=== PATIENT | male | born 1955 | race Caucasian/White ===

== ENCOUNTER 2022-11-11 08:37 | Outpatient (CLI) | payer MEDICARE, SELFPAY ==
[2022-11-11 09:20] VITALS: BP 134/66; PULSE 65; RESP 18; TEMP 36.8; O2SAT 98
[2022-11-11 09:50] VITALS: BP 122/67; PULSE 59; RESP 18
== END 2022-11-11 09:50 | disposition home or self-care (01) ==
LOC: INF 08:38
PROVIDERS: PCP Family Medicine; Visit Provider Internal Medicine Medical Oncology
DX: D50.9 Iron deficiency anemia, unspecified (principal)
CPT/HCPCS: 96374; Q0138

== ENCOUNTER 2022-11-15 08:16 | Outpatient (CLI) | payer MEDICARE, SELFPAY ==
[2022-11-15 08:35] VITALS: BP 131/74; PULSE 76; RESP 18; O2SAT 97
[2022-11-15 08:50] VITALS: BP 135/75; PULSE 71; RESP 18; O2SAT 99
== END 2022-11-15 09:00 | disposition home or self-care (01) ==
LOC: LAB 08:17 → INF 08:28
PROVIDERS: PCP Family Medicine; Visit Provider Internal Medicine Medical Oncology
DX: D50.9 Iron deficiency anemia, unspecified (principal)
CPT/HCPCS: 96374; Q0138

== ENCOUNTER 2025-01-29 13:43 | Outpatient (CLI) | payer MEDICARE, SELFPAY ==
[2025-01-29 13:57] LABS: Hematocrit 38.3 % (42.0-52.0); Hemoglobin 11.9 g/dL (14.1-18.0); Immature Granulocytes % 0.3 %; Mean Corpuscular HGB Conc 31.1 g/dL (31.8-35.4); Mean Corpuscular Hemoglobin 25.8 pg (27.0-31.2); Mean Corpuscular Volume 83.1 fl (80-94); Nucleated Red Blood Cells % 0 %; Platelet Count 362 K/mm3 (142-424); Red Blood Count 4.61 M/mm3 (4.60-6.20); Red Cell Distribution Width-SD 51.6 fL; White Blood Count 6.3 K/mm3 (4.8-10.8)
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
--- OUTSIDE RECORDS SUMMARY | 2025-01-29 14:28 | XMS_ITS | Data Portability ---
Author Organization [facility] Address [address] [place] [address] Assessment Encounter Date Assessment Date Assessment LastModified by Organization Details LastModified Time 07/31/2023 07/31/2023 Medicare Preventive Services Check List reviewed and printed for patient. [email or web address] Not available 07/31/2023 10:40:00 11/07/2024 11/07/2024 Masury: Patient's case and presentation discussed; agree with plan and treatment recommendations as outlined below. Patient seen and evaluated with resident. [email or web address] Not available 11/07/2024 11:59:01 Plan of Treatment Reminders Order Date Submit Date Provider Last Modified By Organization Details Last Modified Time Details Appointments None recorded. Lab CBC w/ auto diff 2024 025 OJ [facility], [address], [address], [place], [address], 14:11:11 ferritin, serum or plasma 2024 025 OJ [facility], [address], [place] [address], [place], [address], 5 14:11:14 folate, serum 2024 025 OJ [facility], [address], [address], [place], [address], 5 14:11:12 TIBC (total iron-zenobia ng capacity), serum 2024 025 OJ [facility], [address], [address], [place], [address], 5 14:11:12 vitamin B12, serum 2024 025 OJ Gaona, [address], [address], [place], [address], 5 14:11:13 retic count, blood 2024 025 OJ Gaona, [address], [place] [address], [place], [address], 5 14:11:14 methylmalo vance, QN, serum or plasma 2024 025 OJ Gaona, [address], [place] [address], [place], [address], 5 14:11:13 iron + total iron-zenobia ng capacity (TIBC), serum 2023 024 OJ Gaona, [address], [place] [address], [place], [address], 4 08:26:03 ferritin, serum or plasma 2023 024 OJ Gaona, [address], [address], [place], [address], 4 08:26:06 CBC w/ auto diff 2023 024 OJ Gaona, [address], [address], [place], [address], 4 08:26:01 lipid panel, serum 2023 024 OJ Gaona, [address], [address], [place], [address], 4 08:26:02 TSH, ultra-sens itive, serum 2023 024 OJ Gaona, [address], [place] [address], [place], [address], 4 08:26:04 magnesium, serum or plasma 2023 024 OJ Dempseytruong, [address], [place] [address], [place], [address], 4 08:26:05 C reactive protein, QN, serum or plasma 2023 024 OJ Dempseytruong, [address], [place] [address], [place], [address], 4 08:26:07 PSA, total, serum or plasma 2023 024 OJ Jimenez, [address], [place] [address], [place], [address], 4 08:26:04 HbA1c (hemoglobi n A1c), blood 2023 024 OJ Dempseytruong, [address], [address], [place], [address], 4 08:28:21 magnesium, serum or plasma 2023 024 OJ Dempseytruong, [address], [address], [place], [address], 4 08:28:21 CMP, serum or plasma 2023 024 OJ Dempseytruong, [address], [address], [place], [address], 4 08:28:18 iron + total iron-zenobia ng capacity (TIBC), serum 2023 024 OJ Dempseytruong, [address], [place] [address], [place], [address], 4 08:28:19 CBC w/ auto diff 2023 024 OJ Jimenez, [address], [address], [place], [address], 4 08:28:17 ferritin, serum or plasma 2023 024 OJ Lablylarp, [address], [place] [address], [place], [address], 4 08:28:23 vitamin B12 + folate, serum or blood 2023 024 OJ [facility], [address], [place] [address], [place], [address], 4 08:28:20 haptoglobi n, serum 2023 024 OJ [facility], [address], [address], [place], [address], 4 08:28:22 Referral gastroente rologist referral 2024 025 BONNIE Centeno MD, [address] [place] [address] , [address], [place], [address], 5 13:59:[address] referral 2024 025 BONNIE Rincon MD, [address], [place], [address], 5 14:20:40 otolaryngo logist referral 2022 023 [email or web address] [facility], [address] [place] [address] [address], [place], [address], 3 09:37:10 Procedures None recorded. Surgeries None recorded. Imaging electromyo gram + nerve conduction study 2023 024 OJ Espinoza PT, [address] , [address], [place], [address], 4 19:23:20 Medication Orders valacyclov ir 1 gram tablet 2023 024 nguttman [facility], [address] [place], [address], 11:43:21 prednisone 20 mg tablet 2023 024 nguttman [facility], [address] [place], [address], 11:43:17 meclizine 12.5 mg tablet 2022 023 [email or web address] [facility], [address] [place], [address], 11:38:50 Patient TargetsNo targets recorded. Patient Instructions Encounter Date Encounter Id Patient Instructions Last Modified By Organization Details Last Modified Time 11/18/2022 [id number] Start Meclizine as directed. Follow up with ENT. If symptoms persist or worsen call pp or seek medical attention. [email or web address] Not available 11/18/2022 13:36:27 07/31/2023 [id number] advance directiv es: care instructions [email or web address] Not available 07/31/2023 11:17:40 learning about depression [email or web address] Not available 07/31/2023 11:17:40 preventing falls : care instructions [email or web address] Not available 07/31/2023 11:17:41 medicare prevent kerry services guide nguttman Not available 07/31/2023 11:17:40 learning about healthy weight [email or web address] Not available 07/31/2023 11:17:40 Learning About Being Physically Active [email or web address] Not available 07/31/2023 11:17:39 11/07/2024 [id number] iron deficiency anemia: care instructions [email or web address] Not available 11/07/2024 11:43:25 01/13/2025 [id number] The patient was seen and evaluated with the resident as documented above. The case and presentation were discussed. I agree with the plan and treatment recommendations as outlined above. [email or web address] Not available 01/13/2025 13:08:22 Reason for Referral Bleacher Pulp Referral fo r Tinnitus Referring Physician: Becky Phelan [facility], Encounter Date: 11/18/2022 Ion Implant Machine Operator Referral for Normocytic normochromic anemia Referring Physician: Tessa Severino [facility], Encounter Date: 01/13/2025 Paper Cutting Machine Operator Referral for No rmocytic normochromic anemia Referring Physician: Tessa Severino [facility], Encounter Date: 01/13/2025 Results Created Date Observation Date Name Description Value Unit Range Abnormal Flag Note LastModifiedBy Organization Detail LastModifiedTime 06/29/19 24 06/30/2023 CBC WITH DIFFE RENTI AL/PL ATELE T WBC 6.7 x10e3 /uL 3.4-10 .8 Not Available [facility] ([facility]) [address] [place], [address], 06/30/2023 08:28:17 06/29/19 24 06/30/2023 CBC WITH DIFFE RENTI AL/PL ATELE T RBC 4.85 x10e6 /uL 4.14-5 .80 Not Available [facility] ([facility]) [address] [place], [address], 06/30/2023 08:28:17 06/29/19 24 06/30/2023 CBC WITH DIFFE RENTI AL/PL ATELE T hemoglobin 13.2 g/dL 13.0-1 7.7 Not Available [facility] ([facility]) [address] [place], [address], 06/30/2023 08:28:17 06/29/19 24 06/30/2023 CBC WITH DIFFE RENTI AL/PL ATELE T hematocrit 41.7 % 37.5-5 1.0 Not Available [facility] ([facility]) [address] [place], [address], 06/30/2023 08:28:17 06/29/19 24 06/30/2023 CBC WITH DIFFE RENTI AL/PL ATELE T MCV 86 fL 79-97 Not Available [facility] ([facility]) [address] [facility], [place], [address], 06/30/2023 08:28:17 06/29/19 24 06/30/2023 CBC WITH DIFFE RENTI AL/PL ATELE T MCH 27.2 pg 26.6-3 3.0 Not Available [facility] ([facility]) [address] [facility], [place], [address], 06/30/2023 08:28:17 06/29/19 24 06/30/2023 CBC WITH DIFFE RENTI AL/PL ATELE T MCHC 31.7 g/dL 31.5-3 5.7 Not Available [facility] ([facility]) [address] [facility], [place], [address], 06/30/2023 08:28:17 06/29/19 24 06/30/2023 CBC WITH DIFFE RENTI AL/PL ATELE T RDW 13.6 % 11.6-1 5.4 Not Available [facility] ([facility]) [address] [facility], [place], [address], 06/30/2023 08:28:17 06/29/19 24 06/30/2023 CBC WITH DIFFE RENTI AL/PL ATELE T platelets 293 x10e3 /uL 150-45 0 Not Available [facility] ([facility]) [address] [facility], [place], [address], 06/30/2023 08:28:17 06/29/19 24 06/30/2023 CBC WITH DIFFE RENTI AL/PL ATELE T neutrophils 66 % not estab. Not Available [facility] ([facility]) [address] [facility], [place], [address], 06/30/2023 08:28:17 06/29/19 24 06/30/2023 CBC WITH DIFFE RENTI AL/PL ATELE T lymphs 19 % not estab. Not Available [facility] ([facility]) [address] [facility], [place], [address], 06/30/2023 08:28:17 06/29/19 24 06/30/2023 CBC WITH DIFFE RENTI AL/PL ATELE T monocytes 13 % not estab. Not Available [facility] ([facility]) [address] [facility], [place], [address], 06/30/2023 08:28:17 06/29/19 24 06/30/2023 CBC WITH DIFFE RENTI AL/PL ATELE T eos 1 % not estab. Not Available [facility] ([facility]) [address] [facility], [place], [address], 06/30/2023 08:28:17 06/29/19 24 06/30/2023 CBC WITH DIFFE RENTI AL/PL ATELE T basos 1 % not estab. Not Available [facility] ([facility]) [address] [facility], [place], [address], 06/30/2023 08:28:17 06/29/19 24 06/30/2023 CBC WITH DIFFE RENTI AL/PL ATELE T immature cells BRICK OR BLOCK MAKER Not Available [facility] ([facility]) [address] [place], [address], 06/30/2023 08:28:17 06/29/19 24 06/30/2023 CBC WITH DIFFE RENTI AL/PL ATELE T neutrophils (absolute) 4.5 x10e3 /uL 1.4-7. 0 Not Available [facility] ([facility]) [address] [place], [address], 06/30/2023 08:28:17 06/29/19 24 06/30/2023 CBC WITH DIFFE RENTI AL/PL ATELE T lymphs (absolute) 1.2 x10e3 /uL 0.7-3. 1 Not Available [facility] ([facility]) [address] [place], [address], 06/30/2023 08:28:17 06/29/19 24 06/30/2023 CBC WITH DIFFE RENTI AL/PL ATELE T monocytes(ab solute) 0.9 x10e3 /uL 0.1-0. 9 Not Available [facility] ([facility]) [address] [facility], [place], [address], 06/30/2023 08:28:17 06/29/19 24 06/30/2023 CBC WITH DIFFE RENTI AL/PL ATELE T eos (absolute) 0.0 x10e3 /uL 0.0-0. 4 Not Available [facility] ([facility]) [address] [facility], [place], [address], 06/30/2023 08:28:17 06/29/19 24 06/30/2023 CBC WITH DIFFE RENTI AL/PL ATELE T baso (absolute) 0.1 x10e3 /uL 0.0-0. 2 Not Available [facility] ([facility]) [address] [facility], [place], [address], 06/30/2023 08:28:17 06/29/19 24 06/30/2023 CBC WITH DIFFE RENTI AL/PL ATELE T immature granulocytes 0 % not estab. Not Available [facility] ([facility]) [address] [place], [address], 06/30/2023 08:28:17 06/29/19 24 06/30/2023 CBC WITH DIFFE RENTI AL/PL ATELE T immature grans (abs) 0.0 x10e3 /uL 0.0-0. 1 Not Available [facility] ([facility]) [address] [place], [address], 06/30/2023 08:28:17 06/29/19 24 06/30/2023 CBC WITH DIFFE RENTI AL/PL ATELE T NRBC BRICK OR BLOCK MAKER Not Available [facility] ([facility]) [address] [facility], [place], [address], 06/30/2023 08:28:17 06/29/19 24 06/30/2023 CBC WITH DIFFE ROEL AL/JAYME Roldan hematology comments: BRICK OR BLOCK MAKER Not Available [facility] ([facility]) [address] [facility], [place], [address], 06/30/2023 08:28:17 06/29/19 24 06/30/2023 COMP. METAB OLIC PANEL (14) glucose 109 mg/dL 70-99 above high normal Not Available [facility] ([facility]) [address] [facility], [place], [address], 06/30/2023 08:28:18 06/29/19 24 06/30/2023 COMP. METAB OLIC PANEL (14) BUN 11 mg/dL 8-27 Not Available [facility] ([facility]) [address] [facility], [place], [address], 06/30/2023 08:28:18 06/29/19 24 06/30/2023 COMP. METAB OLIC PANEL (14) creatinine 1.02 mg/dL 0.76-1 .27 Not Available [facility] ([facility]) [address] [facility], [place], [address], 06/30/2023 08:28:18 06/29/19 24 06/30/2023 COMP. METAB OLIC PANEL (14) eGFR 80 mL/mi n/1.7 3 >59 Not Available [facility] ([facility]) [address] [facility], [place], [address], 06/30/2023 08:28:18 06/29/19 24 06/30/2023 COMP. METAB OLIC PANEL (14) BUN/creatini ne ratio 11 10-24 Not Available [facility] ([facility]) [address] [facility], [place], [address], 06/30/2023 08:28:18 06/29/19 24 06/30/2023 COMP. METAB OLIC PANEL (14) sodium 136 mmol/ L 134-14 4 Not Available [facility] ([facility]) [address] [facility] [place], [address], 06/30/2023 08:28:18 06/29/19 24 06/30/2023 COMP. METAB OLIC PANEL (14) potassium 4.2 mmol/ L 3.5-5. 2 Not Available [facility] ([facility]) [address] [facility] [place], [address], 06/30/2023 08:28:18 06/29/19 24 06/30/2023 COMP. METAB OLIC PANEL (14) chloride 100 mmol/ L 96-106 Not Available [facility] ([facility]) [address] [facility] [place], [address], 06/30/2023 08:28:18 06/29/19 24 06/30/2023 COMP. METAB OLIC PANEL (14) carbon dioxide, total 23 mmol/ L 20-29 Not Available [facility] ([facility]) [address] [place], [address], 06/30/2023 08:28:18 06/29/19 24 06/30/2023 COMP. METAB OLIC PANEL (14) calcium 9.2 mg/dL 8.6-10 .2 Not Available [facility] ([facility]) [address] [place], [address], 06/30/2023 08:28:18 06/29/19 24 06/30/2023 COMP. METAB OLIC PANEL (14) protein, total 6.8 g/dL 6.0-8. 5 Not Available [facility] ([facility]) [address] [place], [address], 06/30/2023 08:28:18 06/29/19 24 06/30/2023 COMP. METAB OLIC PANEL (14) albumin 4.3 g/dL 3.9-4. 9 Not Available [facility] ([facility]) [address] [facility], [place], [address], 06/30/2023 08:28:18 06/29/19 24 06/30/2023 COMP. METAB OLIC PANEL (14) globulin, total 2.5 g/dL 1.5-4. 5 Not Available [facility] ([facility]) [address] [facility] [place], [address], 06/30/2023 08:28:18 06/29/19 24 06/30/2023 COMP. METAB OLIC PANEL (14) A/G ratio 1.7 1.2-2. 2 Not Available [facility] ([facility]) [address] [facility], [place], [address], 06/30/2023 08:28:18 06/29/19 24 06/30/2023 COMP. METAB OLIC PANEL (14) bilirubin, total 0.2 mg/dL 0.0-1. 2 Not Available [facility] ([facility]) [address] [facility] [place], [address], 06/30/2023 08:28:18 06/29/19 24 06/30/2023 COMP. METAB OLIC PANEL (14) alkaline phosphatase 101 IU/L 44-121 Not Available [facility]) [address] [facility], [place], [address], 06/30/2023 08:28:18 06/29/19 24 06/30/2023 COMP. METAB OLIC PANEL (14) AST (SGOT) 24 IU/L 0-40 Not Available [facility] ([facility]) [address] [facility] [place], [address], 06/30/2023 08:28:18 06/29/19 24 06/30/2023 COMP. METAB OLIC PANEL (14) ALT (SGPT) 24 IU/L 0-44 Not Available [facility] ([facility]) [address] [facility], [place], [address], 06/30/2023 08:28:18 06/29/19 24 06/30/2023 IRON AND TIBC iron bind.cap.(TI BC) 456 ug/dL 250-45 0 above high normal Not Available [facility] ([facility]) [address] [facility], [place], [address], 06/30/2023 08:28:19 06/29/19 24 06/30/2023 IRON AND TIBC UIBC 249 ug/dL 111-34 3 Not Available [facility] ([facility]) [address] [facility], [place], [address], 06/30/2023 08:28:19 06/29/19 24 06/30/2023 IRON AND TIBC iron 207 ug/dL 38-169 above high normal Not Available [facility] ([facility]) [address] [place], [address], 06/30/2023 08:28:19 06/29/19 24 06/30/2023 IRON AND TIBC iron saturation 45 % 15-55 Not Available [facility] ([facility]) [address] [place], [address], 06/30/2023 08:28:19 06/29/19 24 06/30/2023 VITAM IN B12 AND FOLAT E vitamin B12 330 pg/mL 232-12 45 Not Available [facility] ([facility]) [address] [place], [address], 06/30/2023 08:28:20 06/29/19 24 06/30/2023 VITAM IN B12 AND FOLAT E folate (folic acid), serum 16.7 NG/mL >3.0 A serum folat e luzmaria ntrat ion of less than 3.1 ng/mL is consi dered to repre sent clini irma defic iency . Not Available [facility] ([facility]) [address] [place], [address], 06/30/2023 08:28:20 06/29/19 24 06/30/2023 HEMOG LOBIN A1C hemoglobin A1C 6.3 % 4.8-5. 6 above high normal Predi abete s: 5.7 - 6.4 Diabe joshua: >6.4 Glyce oscar contr ol for adult s with diabe joshua: <7.0 Not Available [facility] ([facility]) [address] [place], [address], 06/30/2023 08:28:21 06/29/19 24 06/30/2023 MAGNE SIUM magnesium 2.1 mg/dL 1.6-2. 3 Not Available [facility] ([facility]) [address] [place], [address], 06/30/2023 08:28:21 06/29/19 24 06/30/2023 HAPTO GLOBI N haptoglobin 200 mg/dL 32-363 Not Available [facility] ([facility]) [address] [place], [address], 06/30/2023 08:28:22 06/29/19 24 06/30/2023 CM TIN ferritin 12 NG/mL 30-400 below low normal Not Available [facility] ([facility]) [address] [place], [address], 06/30/2023 08:28:23 06/29/19 24 07/06/2023 METHY LMALO KODY ACID, SERUM methylmaloni c acid, serum 233 nmol/ L 0-378 Not Available [facility] ([facility]) [address] [place], [address], 07/06/2023 20:08:58 06/29/19 24 06/30/2023 RAD EN AUTHO RIZAT ION written authorizatio n Commen t Rad en Autho rizat ion Recei corina. Autho rizat ion recei corina from RAD EN REQUE ST 06-29 Logge d by Aiden whyte Not Available [facility] ([facility]) [address] [facility], [place], [address], 07/06/2023 20:08:59 07/31/19 24 08/01/2023 CBC WITH DIFFE RENTI AL/PL ATELE T WBC 4.7 x10e3 /uL 3.4-10 .8 Not Available [facility] ([facility]) [address] [place], [address], 08/01/2023 08:26:00 07/31/19 24 08/01/2023 CBC WITH DIFFE RENTI AL/PL ATELE T RBC 4.63 x10e6 /uL 4.14-5 .80 Not Available [facility] ([facility]) [address] [place], [address], 08/01/2023 08:26:00 07/31/19 24 08/01/2023 CBC WITH DIFFE RENTI AL/PL ATELE T hemoglobin 13.1 g/dL 13.0-1 7.7 Not Available [facility] ([facility]) [address] [place], [address], 08/01/2023 08:26:00 07/31/19 24 08/01/2023 CBC WITH DIFFE RENTI AL/PL ATELE T hematocrit 40.5 % 37.5-5 1.0 Not Available [facility] ([facility]) [address] [place], [address], 08/01/2023 08:26:00 07/31/19 24 08/01/2023 CBC WITH DIFFE RENTI AL/PL ATELE T MCV 88 fL 79-97 Not Available [facility] ([facility]) [address] [place], [address], 08/01/2023 08:26:00 07/31/19 24 08/01/2023 CBC WITH DIFFE RENTI AL/PL ATELE T MCH 28.3 pg 26.6-3 3.0 Not Available [facility] ([facility]) [address] [place], [address], 08/01/2023 08:26:00 07/31/19 24 08/01/2023 CBC WITH DIFFE RENTI AL/PL ATELE T MCHC 32.3 g/dL 31.5-3 5.7 Not Available [facility] ([facility]) [address] [place], [address], 08/01/2023 08:26:00 07/31/19 24 08/01/2023 CBC WITH DIFFE RENTI AL/PL ATELE T RDW 15.7 % 11.6-1 5.4 above high normal Not Available [facility] ([facility]) [address] [place], [address], 08/01/2023 08:26:00 07/31/19 24 08/01/2023 CBC WITH DIFFE RENTI AL/PL ATELE T platelets 271 x10e3 /uL 150-45 0 Not Available [facility] ([facility]) [address] [place], [address], 08/01/2023 08:26:00 07/31/19 24 08/01/2023 CBC WITH DIFFE RENTI AL/PL ATELE T neutrophils 64 % not estab. Not Available [facility] ([facility]) [address] [place], [address], 08/01/2023 08:26:00 07/31/19 24 08/01/2023 CBC WITH DIFFE RENTI AL/PL ATELE T lymphs 19 % not estab. Not Available [facility] ([facility]) [address] [place], [address], 08/01/2023 08:26:00 07/31/19 24 08/01/2023 CBC WITH DIFFE RENTI AL/PL ATELE T monocytes 15 % not estab. Not Available [facility] ([facility]) [address] [facility], [place], [address], 08/01/2023 08:26:00 07/31/19 24 08/01/2023 CBC WITH DIFFE RENTI AL/PL ATELE T eos 1 % not estab. Not Available [facility] ([facility]) [address] [facility], [place], [address], 08/01/2023 08:26:00 07/31/19 24 08/01/2023 CBC WITH DIFFE RENTI AL/PL ATELE T basos 1 % not estab. Not Available [facility] ([facility]) [address] [facility], [place], [address], 08/01/2023 08:26:00 07/31/19 24 08/01/2023 CBC WITH DIFFE RENTI AL/PL ATELE T immature cells BRICK OR BLOCK MAKER Not Available [facility] ([facility]) [address] [place], [address], 08/01/2023 08:26:00 07/31/19 24 08/01/2023 CBC WITH DIFFE RENTI AL/PL ATELE T neutrophils (absolute) 3.0 x10e3 /uL 1.4-7. 0 Not Available [facility] ([facility]) [address] [place], [address], 08/01/2023 08:26:00 07/31/19 24 08/01/2023 CBC WITH DIFFE RENTI AL/PL ATELE T lymphs (absolute) 0.9 x10e3 /uL 0.7-3. 1 Not Available [facility] ([facility]) [address] [place], [address], 08/01/2023 08:26:00 07/31/19 24 08/01/2023 CBC WITH DIFFE RENTI AL/PL ATELE T monocytes(ab solute) 0.7 x10e3 /uL 0.1-0. 9 Not Available [facility] ([facility]) [address] [facility], [place], [address], 08/01/2023 08:26:00 07/31/19 24 08/01/2023 CBC WITH DIFFE RENTI AL/PL ATELE T eos (absolute) 0.0 x10e3 /uL 0.0-0. 4 Not Available [facility] ([facility]) [address] [facility], [place], [address], 08/01/2023 08:26:00 07/31/19 24 08/01/2023 CBC WITH DIFFE RENTI AL/PL ATELE T baso (absolute) 0.0 x10e3 /uL 0.0-0. 2 Not Available [facility] ([facility]) [address] [facility], [place], [address], 08/01/2023 08:26:00 07/31/19 24 08/01/2023 CBC WITH DIFFE RENTI AL/PL ATELE T immature granulocytes 0 % not estab. Not Available [facility] ([facility]) [address] [facility], [place], [address], 08/01/2023 08:26:00 07/31/19 24 08/01/2023 CBC WITH DIFFE RENTI AL/PL ATELE T immature grans (abs) 0.0 x10e3 /uL 0.0-0. 1 Not Available [facility] ([facility]) [address] [facility], [place], [address], 08/01/2023 08:26:00 07/31/19 24 08/01/2023 CBC WITH DIFFE RENTI AL/PL ATELE T NRBC BRICK OR BLOCK MAKER Not Available [facility] ([facility]) [address] [facility], [place], [address], 08/01/2023 08:26:00 07/31/19 24 08/01/2023 CBC WITH DIFFE RENTI AL/PL ATELE T hematology comments: BRICK OR BLOCK MAKER Not Available [facility] ([facility]) [address] [place], [address], 08/01/2023 08:26:00 07/31/19 24 08/01/2023 LIPID PANEL cholesterol, total 201 mg/dL 100-19 9 above high normal Not Available [facility] ([facility]) [address] [place], [address], 08/01/2023 08:26:02 07/31/19 24 08/01/2023 LIPID PANEL triglyceride s 135 mg/dL 0-149 Not Available [facility] ([facility]) [address] [place], [address], 08/01/2023 08:26:02 07/31/19 24 08/01/2023 LIPID PANEL HDL cholesterol 48 mg/dL >39 Not Available [facility] ([facility]) [address] [place], [address], 08/01/2023 08:26:02 07/31/19 24 08/01/2023 LIPID PANEL VLDL cholesterol irma 24 mg/dL 5-40 Not Available [facility] ([facility]) [address] [place], [address], 08/01/2023 08:26:02 07/31/19 24 08/01/2023 LIPID PANEL LDL chol calc ([facility]) 129 mg/dL 0-99 above high normal Not Available [facility] ([facility]) [address] [place], [address], 08/01/2023 08:26:02 07/31/19 24 08/01/2023 LIPID PANEL comment: BRICK OR [employer] Not Available [facility] ([facility]) [address] [place], [address], 08/01/2023 08:26:02 07/31/19 24 08/01/2023 IRON AND TIBC iron bind.cap.([facility]) 427 ug/dL 250-45 0 Not Available [facility] ([facility]) [address] [facility], [place], [address], 08/01/2023 08:26:03 07/31/19 24 08/01/2023 IRON AND TIBC UIBC 396 ug/dL 111-34 3 above high normal Not Available [facility] ([facility]) [address] [place], [address], 08/01/2023 08:26:03 07/31/19 24 08/01/2023 IRON AND TIBC iron 31 ug/dL 38-169 below low normal Not Available [facility] ([facility]) [address] [place], [address], 08/01/2023 08:26:03 07/31/19 24 08/01/2023 IRON AND TIBC iron saturation 7 % 15-55 alert low Not Available [facility] ([facility]) [address] [place], [address], 08/01/2023 08:26:03 07/31/19 24 08/01/2023 TSH TSH 3.270 uIU/m L 0.450- 4.500 Not Available [facility] ([facility]) [address] [place], [address], 08/01/2023 08:26:03 07/31/19 24 08/01/2023 PROST ATE-S PECIF IC AG prostate specific Ag 1.0 NG/mL 0.0-4. 0 Jori ECLIA metho dolog y. Accor ding to the [employer] n, Serum PSA shoul d decre ase and remai n at undet ectab le level s after radic al prost atect hope. The AUA defin es bioch emica l recur rence as an initi al PSA value 0.2 ng/mL or great er follo wed by a subse quent confi rmato ry PSA value 0.2 ng/mL or great er. Value s obtai jenni with diffe rent assay metho ds or kits canno t be used inter [place] . Resul ts canno t be inter prete d as absol [place] of the prese nce or absen ce of [place] . Not Available [facility] ([facility]) [address] [facility], [place], [address], 08/01/2023 08:26:04 07/31/19 24 08/01/2023 MAGNE SIUM magnesium 2.2 mg/dL 1.6-2. 3 Not Available [facility] ([facility]) [address] [place], [address], 08/01/2023 08:26:05 07/31/19 24 08/01/2023 CM TIN ferritin 11 NG/mL 30-400 below low normal Not Available [facility] ([facility]) [address] [place], [address], 08/01/2023 08:26:06 07/31/19 24 08/01/2023 C-RUSH CTIVE PROTE IN, QUANT C-reactive protein, quant <1 mg/L 0-10 Not Available [facility] ([facility]) [address] [place], [address], 08/01/2023 08:26:07 08/17/19 24 08/17/2023 CREAT ININE W/GFR note See Note Order ing Provi milla: Lucia whyte MD Not Available [address] [place], [address], 08/17/2023 09:05:10 08/17/19 24 08/17/2023 CREAT ININE W/GFR creatinine 1.14 mg/dL 0.70-1 .30 normal Not Available [address] [place], [address], 08/17/2023 09:05:10 08/17/19 24 08/17/2023 CREAT ININE W/GFR GFR (estimated) 70 mL/mi n >60 normal [IM NINI NT]: The 2020 CKD-E PI equat ion is now the recom gaby d stand deana. This versi on does not inclu de race, as do the 2008 and 2011 CKD-E PI creat inine and creat inine -cyst atin C equat ions. Pleas e note that the eGFR now repor hiro is gener ated by the new 2020 CKD-E PI equat ion, which decre ases the eGFR for black s by up to 10% and incre ases the eGFR for non-b lacks by up to 10% in pa rison to the old equat ion. To pa re a legac y eGFR to a curre nt value , a 2008 CKD-E PI calcu lator is easil y searc hable on the inter net. Calcu lated GFR: This calcu lated GFR is advoc ated by the Natio nal Kidne y Found ation to be used as an indic ator of Chron ic Kidne y Disea se (CKD) . 5 Stage s of Chron ic Kidne y Disea se. Stage 1 90 mL/mi n or more Healt hy kidne ys or Kidne y damag e with inocencia l or high GFR detai ls Stage 2 60 to 89 mL/mi n Kidne y damag e and mild decre ase in GFR detai ls Stage 3 30 to 59 mL/mi n Moder ate decre ase in GFR detai ls Stage 4 15 to 29 mL/mi n Sever e decre ase in GFR detai ls Stage 5 Less than 15 mL/mi n On dialy sis or Kidne y failu re Patie nt's clini irma statu s must be consi dered for the care of your patie nt. Not Available [address] , [place], [address], 08/17/2023 09:05:10 08/17/19 24 08/17/2023 CREAT ININE W/GFR performing lab see note ML - [facility] R [employer] [place] [address] [facility] [address] Not Available [address] , [place], [address], 08/17/2023 09:05:10 11/08/1911/08/2024 CBC WITH DIFFE RENTI AL/PL ATELE T WBC 5.9 x10e3 /uL 3.4-10 .8 normal Not Available [facility] ([facility]) [address] [place], [address], 11/11/2024 14:11:11 11/08/19 25 11/08/2024 CBC WITH DIFFE RENTI AL/PL ATELE T RBC 4.60 x10e6 /uL 4.14-5 .80 normal Not Available [facility] ([facility]) [address] [place], [address], 11/11/2024 14:11:11 11/08/19 25 11/08/2024 CBC WITH DIFFE RENTI AL/PL ATELE T hemoglobin 12.0 g/dL 13.0-1 7.7 below low normal Not Available [facility] ([facility]) [address] [place], [address], 11/11/2024 14:11:11 11/08/1911/08/2024 CBC WITH DIFFE RENTI AL/PL ATELE T hematocrit 39.6 % 37.5-5 1.0 normal Not Available [facility] ([facility]) [address] [place], [address], 11/11/2024 14:11:11 11/08/1911/08/2024 CBC WITH DIFFE RENTI AL/PL ATELE T MCV 86 fL 79-97 normal Not Available [facility] ([facility]) [address] [place], [address], 11/11/2024 14:11:11 11/08/19 25 11/08/2024 CBC WITH DIFFE RENTI AL/PL ATELE T MCH 26.1 pg 26.6-3 3.0 below low normal Not Available [facility] ([facility]) [address] [facility], [place], [address], 11/11/2024 14:11:11 11/08/19 25 11/08/2024 CBC WITH DIFFE RENTI AL/PL ATELE T MCHC 30.3 g/dL 31.5-3 5.7 below low normal Not Available [facility] ([facility]) [address] [facility], [place], [address], 11/11/2024 14:11:11 11/08/19 25 11/08/2024 CBC WITH DIFFE RENTI AL/PL ATELE T RDW 14.4 % 11.6-1 5.4 Not Available [facility] ([facility]) [address] [facility], [place], [address], 11/11/2024 14:11:11 11/08/19 25 11/08/2024 CBC WITH DIFFE RENTI AL/PL ATELE T platelets 271 x10e3 /uL 150-45 0 normal Not Available [facility] ([facility]) [address] [facility], [place], [address], 11/11/2024 14:11:11 11/08/19 25 11/08/2024 CBC WITH DIFFE RENTI AL/PL ATELE T neutrophils 60 % not estab. normal Not Available [facility] ([facility]) [address] [facility], [place], [address], 11/11/2024 14:11:11 11/08/19 25 11/08/2024 CBC WITH DIFFE RENTI AL/PL ATELE T lymphs 27 % not estab. normal Not Available [facility] ([facility]) [address] [facility], [place], [address], 11/11/2024 14:11:11 11/08/19 25 11/08/2024 CBC WITH DIFFE RENTI AL/PL ATELE T monocytes 11 % not estab. normal Not Available [facility] ([facility]) [address] [place], [address], 11/11/2024 14:11:11 11/08/19 25 11/08/2024 CBC WITH DIFFE RENTI AL/PL ATELE T eos 1 % not estab. normal Not Available [facility] ([facility]) [address] [facility], [place], [address], 11/11/2024 14:11:11 11/08/19 25 11/08/2024 CBC WITH DIFFE RENTI AL/PL ATELE T basos 1 % not estab. normal Not Available [facility] ([facility]) [address] [place], [address], 11/11/2024 14:11:11 11/08/19 25 11/08/2024 CBC WITH DIFFE RENTI AL/PL ATELE T immature cells BRICK OR BLOCK MAKER Not Available [facility] ([facility]) [address] [place], [address], 11/11/2024 14:11:11 11/08/19 25 11/08/2024 CBC WITH DIFFE RENTI AL/PL ATELE T neutrophils (absolute) 3.5 x10e3 /uL 1.4-7. 0 normal Not Available [facility] ([facility]) [address] [place], [address], 11/11/2024 14:11:11 11/08/19 25 11/08/2024 CBC WITH DIFFE RENTI AL/PL ATELE T lymphs (absolute) 1.6 x10e3 /uL 0.7-3. 1 normal Not Available [facility] ([facility]) [address] [place], [address], 11/11/2024 14:11:11 11/08/19 25 11/08/2024 CBC WITH DIFFE RENTI AL/PL ATELE T monocytes(ab solute) 0.6 x10e3 /uL 0.1-0. 9 normal Not Available [facility] ([facility]) [address] [place], [address], 11/11/2024 14:11:11 11/08/19 25 11/08/2024 CBC WITH DIFFE RENTI AL/PL ATELE T eos (absolute) 0.1 x10e3 /uL 0.0-0. 4 normal Not Available [facility] ([facility]) [address] [facility], [place], [address], 11/11/2024 14:11:11 11/08/19 25 11/08/2024 CBC WITH DIFFE RENTI AL/PL ATELE T baso (absolute) 0.0 x10e3 /uL 0.0-0. 2 normal Not Available [facility] ([facility]) [address] [facility], [place], [address], 11/11/2024 14:11:11 11/08/19 25 11/08/2024 CBC WITH DIFFE RENTI AL/PL ATELE T immature granulocytes 0 % not estab. Not Available [facility] ([facility]) [address] [facility], [place], [address], 11/11/2024 14:11:11 11/08/1911/08/2024 CBC WITH DIFFE RENTI AL/PL ATELE T immature grans (abs) 0.0 x10e3 /uL 0.0-0. 1 Not Available [facility] ([facility]) [address] [facility], [place], [address], 11/11/2024 14:11:11 11/08/1911/08/2024 CBC WITH DIFFE RENTI AL/PL ATELE T NRBC BRICK [employer] BLOCK [employer]KER Not Available [facility] ([facility]) [address] [facility], [place], [address], 11/11/2024 14:11:11 11/08/19 25 11/08/2024 CBC WITH DIFFE RENTI AL/PL ATELE T hematology comments: BRICK [employer] BLOCK [employer]KER Not Available [facility] ([facility]) [address] [facility], [place], [address], 11/11/2024 14:11:11 11/08/19 25 11/08/2024 IRON AND TIBC iron bind.cap.(TI BC) 437 ug/dL 250-45 0 normal Not Available [facility] ([facility]) [address] [facility], [place], [address], 11/11/2024 14:11:11 11/08/19 25 11/08/2024 IRON AND TIBC UIBC 411 ug/dL 111-34 3 above high normal Not Available [facility] ([facility]) [address] [place], [address], 11/11/2024 14:11:11 11/08/19 25 11/08/2024 IRON AND TIBC iron 26 ug/dL 38-169 below low normal Not Available [facility] ([facility]) [address] [place], [address], 11/11/2024 14:11:11 11/08/19 25 11/08/2024 IRON AND TIBC iron saturation 6 % 15-55 alert low Not Available [facility] ([facility]) [address] [place], [address], 11/11/2024 14:11:11 11/08/19 25 11/08/2024 FOLAT E (FOLI C ACID) , SERUM folate (folic acid), serum 7.1 NG/mL >3.0 normal A serum folat e luzmaria ntrat ion of less than 3.1 ng/mL is consi dered to repre sent clini irma defic iency . Not Available [facility] ([facility]) [address] [place], [address], 11/11/2024 14:11:12 11/08/19 25 11/11/2024 METHY LMALO KODY ACID, SERUM methylmaloni c acid, serum 204 nmol/ L 0-378 Not Available [facility] ([facility]) [address] [place], [address], 11/11/2024 14:11:12 11/08/19 25 11/08/2024 VITAM IN B12 vitamin B12 233 pg/mL 232-12 45 normal Not Available [facility] ([facility]) [address] [facility], [place], [address], 11/11/2024 14:11:13 11/08/19 25 11/08/2024 CM TIN ferritin 8 NG/mL 30-400 below low normal Not Available [facility] ([facility]) [address] [facility], [place], [address], 11/11/2024 14:11:14 11/08/19 25 11/08/2024 RETIC ULOCY TE COUNT reticulocyte count 1.6 % 0.6-2. 6 Not Available [facility] ([facility]) [address] [facility], [place], [address], 11/11/2024 14:11:14 08/08/19 24 08/08/2023 elect romyo gram + nerve condu ction study No observ ation record ed. lasil[employer]wa [employer] [facility] [address] [facility] , [place], [address], 08/09/2023 14:33:46 08/17/19 24 08/17/2023 CT, abdom en + pelvi s, w/wo contr ast [place] [facility] Ce Name: CLAUDETTE NUVIA Pending sale to [facility] [employer] Phys: Oniel posey MD, [place] [address] : 1955 Age: 68 Sex: M Acct: [id number] Loc: G.CT PHONE #: [phone] Exam Date: 2023 Status : REG CLI FAX #: [phone] Rad# [id number] Unit# [id number] Admit Date: 2023 EXAMS: CPT CODE: [id number] CT ABD/PE L WO/W CONTRA ST [address] CT ABDOME N AND PELVIS WITH AND WITHOU T CONTRA ST, 08/17/19 24: CLINIC AL HISTOR Y: Left-s ided abdomi nal pain and iron defici ency anemia COMPAR BENITA: None. TECHNI QUE: Routin e pre-an d postco ntrast imagin g of the abdome n, as well as postco ntrast imagin g of the pelvis , was perfor med utiliz ing 80 mLs of Isovue -370 admini stered intrav enousl y. This data was used to perfor m reyes l recons tructi ons. GE's Auto mA automa hiro exposu re contro l was utiliz ed for radiat ion dose reduct ion. FINDIN GS: The heart is normal in size. There is a calcif ied granul denice and mild depend ent atelec tasis in the right lower lobe. There is advanc ed degene rative disc diseas e L2-3 and L5-S1 withou t severe spinal stenos is There are 1-2 mm nonobs tructi ng renal calcul i. There are multip le subcen timete r hepati c cysts. The spleen , pancre as, and adrena l glands are within normal limits . The gallbl adder is unrema rkable . Gallst ones are not exclud ed by CT. The large and small bowel are unrema rkable withou t obstru ction or wall thicke omar. The append ix is not identi fied. There are no perice irma inflam matory change s. The abdomi nal aorta is mildly calcif ied withou t aneury sm. There is no pathol ogic adenop athy or ascite s in the abdome n or pelvis . Within the pelvis , the bladde r, prosta te, and rectum are unrema rkable . There is a small fat-co ntaini ng direct left inguin al hernia IMPRES GABBY: 1. No acute intra- abdomi nal or pelvic proces s 2. Bilate ral nonobs tructi ng nephro lithia sis *Recom mendat ions for follow up/man agemen t of pulmon andria nodule s will be based on the Fleisc hner Societ y criter ia NOTE: Any incide ntally noted liver lesion s equal to or less than 5 mm, cystic lesion s in the kidney s less than 1 cm, and/or adrena l lesion s equal to or less than 1 cm, genera lly are consid ered highly likely to be benign and no additi onal evalua tion is recomm ended, unless specif tiffany daly jenni in the impres gabby. PAGE 1 Signed Report (JOMAR NUED) [facility] Med[facility] l Ce Name: NUVIA BARNHART [address] [place] [address] Phys: Oniel posey MD, [place] [address] : 1955 Age: 68 Sex: M Acct: [id number] Loc: G.CT PHONE #: Exam Date: 2023 Status : REG CLI FAX #: Rad# [id number] Unit# [id number] Admit Date: 2023 EXAMS: CPT CODE: [id number] CT ABD/PE L WO/W CONTRA [place] [address] Electr onical ly Signed by JORGE AVITIA MD on 2023 at 1315 Report ed and signed by: JORGE AVITIA MD CC: Lucia posey Dictat ed Date/T keke: 2023 (1315) Techno logist : CORA WISE Transc ribed Date/T keke: 2023 (1315) Transc riptio nist: DR.HAG HEIDI Smith onic Signat ure Date/T keke: 2023 (1315) Printe d Date/T keke: 2023 (1318) BATCH NO: N/A PAGE 2 Signed Report CC'ed Logic: Orderi ng Provid er: ONIEL PERRY Attend ing Provid er: ONIEL PERRY Referr ing Provid er: ONIEL PERRY Consul ting Provid er: ONIEL [address] [place], [address], 08/17/2023 17:25:02 Result Notes Documentation Provider Name and Address Organization Details Recorded Time Ct, Abdomen + Pelvis, W/wo Contrast : [facility] Ce Name: NUVIA BARNHART [facility] Phys: Chery MAGAÑA [place] [id number] : 1955 Age: 68 Sex: M Acct: [id number] Loc: G.CT PHONE #: Exam Date: 08/17/2023 Status: REG CLI FAX #: Rad# [id number] Unit# [id number] Admit Date: 08/17/2023 EXAMS: CPT CODE: [id number] CT ABD/PEL WO/W CONTRAST 83404 CT ABDOMEN AND PELVIS WITH AND WITHOUT CONTRAST, 08/17/2023: CLINICAL HISTORY: Left-sided abdominal pain and iron deficiency anemia COMPARISON: None. TECHNIQUE: Routine pre-and postcontrast imaging of the abdomen, as well as postcontrast imaging of the pelvis, was performed utilizing 80 mLs of Isovue-370 administered intravenously. This data was used to perform coronal reconstructions. [employer]'s Auto mA automated exposure control was utilized for radiation dose reduction. FINDINGS: The heart is normal in size. There is a calcified granuloma and mild dependent atelectasis in the right lower lobe. There is advanced degenerative disc disease L2-3 and L5-S1 without severe spinal stenosis There are 1-2 mm nonobstructing renal calculi. There are multiple subcentimeter hepatic cysts. The spleen, pancreas, and adrenal glands are within normal limits. The gallbladder is unremarkable. Gallstones are not excluded by CT. The large and small bowel are unremarkable without obstruction or wall thickening. The appendix is not identified. There are no pericecal inflammatory changes. The abdominal aorta is mildly calcified without aneurysm. There is no pathologic adenopathy or ascites in the abdomen or pelvis. Within the pelvis, the bladder, prostate, and rectum are unremarkable. There is a small fat-containing direct left inguinal hernia IMPRESSION: 1. No acute intra-abdominal or pelvic process 2. Bilateral nonobstructing nephrolithiasis *Recommendations for follow up/management of pulmonary nodules will be based on the Fleischner Society criteria NOTE: Any incidentally noted liver lesions equal to or less than 5 mm, cystic lesions in the kidneys less than 1 cm, and/or adrenal lesions equal to or less than 1 cm, generally are considered highly likely to be benign and no additional evaluation is recommended, unless specifically mentioned in the impression. PAGE 1 Signed Report (CONTINUED) [facility] Ce Name: NUVIA BARNHART Pending sale to [facility] [employer] Phys: Chery MAGAÑA, [place] [address] : 1955 Age: 68 Sex: M Acct: [id number] Loc: G.CT PHONE #: Exam Date: 08/17/2023 Status: REG CLI FAX #: Rad# [id number] Unit# [id number] Admit Date: 08/17/2023 EXAMS: CPT CODE: [id number] CT ABD/PEL WO/W CONTRAST [address]66 at 1315 Reported and signed by: SYED WEST MD CC: Lucia Gottlieb Dictated Date/Time: 08/17/2023 (1315) Technologist: CORA WISE Transcribed Date/Time: 08/17/2023 (1315) Cash Accountant: Electronic Signature Date/Time: 08/17/2023 (1315) Printed Date/Time: 08/17/2023 (1318) BATCH NO: N/A PAGE 2 Signed Report CC'ed Logic: Ordering Provider: CHERY PERRY Attending Provider: CHERY PERRY Referring Provider: CHERY PERRY Consulting Provider: SANDRA Patten - [facility] 08/17/2023 17:25:02 Problems Name Problem SNOMED Code Status Onset Date Resolution Date Notes Provider Name and Address Organization Details Recorded Time Knee pain Completed 200707/04/2020 Lucia Gottlieb MD [address], [place], [address] [place] - [facility] 08:37:42 Depressive disorder 53552582 Active 2016 SANDRA Ortiz - [facility] 7 10:19:02 Vitamin B12 deficiency (non anemic) 55806920 Active 2020 Lucia Gottlieb MD [address], [place], [address], [place] - [facility] 1 08:37:33 Mixed hyperlipide eduarda 330019924 Active 2020 Lucia Gottlieb MD [address], [place], [address], [place] - [facility] 1 08:37:35 Prediabetes 903276204 Active 2020 Lucia Gottlieb MD [address], [place], [address], [place] - [facility] 1 08:37:36 SARS-CoV-2 Completed 202207/29/2022 SANDRA Ortiz - [facility] 3 10:44:25 Iron deficiency anemia 53097139 Active 2022 Lucia Gottlieb MD [address], [place], [address], [place] - [facility] 3 19:42:31 History of adenomatous polyp of colon 017900076 Active 2023 Lucia Gottlieb MD [address], [place], [address], [place] - [facility] 4 11:41:52 Fatigue 25642678 Active 2024 Tessa Severino DO [address], [place], [address], [place] - [facility] 5 13:59:03 Normocytic normochromi c anemia 62206744 Active 2024 Tessa Severino DO [address], [place], [address], [place] - [facility] 5 13:56:32 Mononeuropa thy 303426356 Active 2024 Tessa Severino DO [address], [place], [address], [place] - [facility] 5 13:59:38 Problem Notes None recorded. Procedures Surgical History Date Name Laterality Status Provider Name and Address Organization Details Recorded Time 2023 Advance Care Planning completed Lucinda FLORES - [facility] 4 10:40:02 2023 Functional Status Assessed completed Taylor FLORES - [facility] 4 10:40:02 2022 esophagogastroduodenoscopy completed Lucia Gottlieb MD [address], [place], [address], [place] - [facility] 3 11:33:06 2022 Colonoscopy completed Lucia Gottlieb MD [address], [place], [address], [place] - [facility] 3 12:04:18 2022 Advance Care Planning completed Lucinda FLORES - [facility] 3 10:40:42 2022 Functional Status Assessed completed Taylor FLORES - [facility] 3 10:40:42 2017 Cardiac Cath completed Lucia Gottlieb MD [address], [place], [address], [place] - [facility] 8 12:42:38 Appendectomy completed Lucinda FLORES - [facility] 7 10:22:29 Knee Surgery completed Lucinda FLORES - [facility] 7 10:22:38 Imaging Results None recorded. Procedure Notes None recorded. Medical Equipment None Reported. Allergies Allergen ID Allergen Name Allergen Category Reaction Reaction Severity Criticality Documentation Date Start Date Code Code System Note Provider Name and Address Organization Details Recorded Time 694063 shrimp allergeni c extract food vomiting severe Not available 11/07/2024 87379 2 RxNorm [place] Rivera SANDRA anglin - [facility] 5 11:33:09 No known drug allergies Medications Name Sig Start Date Stop Date Status Note LastModified by Organization Details LastModified Time prednisone 10 mg tablet TAKE 1 TABLET BY MOUTH TWICE DAILY FOR 7 DAYS AND THEN 1 ONCE DAILY FOR 7 DAYS DOSES WITH FOOD 06/28 completed Not Available Not Available Not Available atorvastat in 10 mg tablet TAKE 1 TABLET BY MOUTH ONCE DAILY active Not Available Not Available No t Available valacyclov ir 1 gram tablet TAKE 1 TABLET BY MOUTH EVERY 8 HOURS FOR 7 DAYS 07/15 completed Not Available Not Available Not Available prednisone 20 mg tablet TAKE 1 TABLET BY MOUTH TWICE DAILY 07/15 completed Not Available Not Available Not Available meclizine 12.5 mg tablet TAKE 1 TABLET BY MOUTH THREE TIMES DAILY 06/28 completed 06/2023 caused nausea Not Available Not Available Not Available paroxetine 20 mg tablet 03/27 completed Not Available Not Available Not Available ferrous sulfate 325 mg (65 mg iron) tablet Take 1 tablet every day by oral route. active Not Available Not Available No t Available omeprazole 20 mg capsule,de layed release Take 1 capsule every day by oral route with meals. active Not Available Not Available No t Available cyanocobal phillip (vit B-12) 1,000 mcg sublingual [...] propionate 50 mcg/actuat ion nasal spray,susp ension USE 2 SPRAY(S) IN EACH NOSTRIL ONCE DAILY DIRECTED active Not Available Not Available No t Available sodium,pot assium,mag sulfates 17.5 gram-3.13 gram-1.6 gram oral soln TAKE DIRECTED 11/18 completed Not Available Not Available Not Available Multi Vitamin 1 tab po qday OTC active Not Available Not Available No t Available Vitals Date Recorded Body height Body mass index (BMI) Body weight Body temperature Respiratory rate Heart rate Oxygen saturation Oxygen saturation in Arterial blood by Pulse oximetry Systolic And Diastolic Provider Name and Address Organization Details Last Updated DateTime 4 185.42 cm 24.3 kg/m2 52760 g 98.5 [degF] 20 /min 61 /min 98 % 98 % 130/80 mm[Hg] Lucinda Wagner [place] - [facility] 4 11:40:54 Date Recorded Body height Body mass index (BMI) Body weight Body temperature Respiratory rate Heart rate Oxygen saturation Oxygen saturation in Arterial blood by Pulse oximetry Systolic And Diastolic Provider Name and Address Organization Details Last Updated DateTime 4 185.42 cm 24.1 kg/m2 02208.6 1 g 98.5 [degF] 20 /min 64 /min 98 % 98 % 120/80 mm[Hg] Lucinda Wagner [place] - [facility] 4 10:43:29 Date Recorded Body weight Body mass index (BMI) Body height Body temperature Heart rate Oxygen saturation Oxygen saturation in Arterial blood by Pulse oximetry Respiratory rate Pain severity - 0-10 verbal numeric rating [Score] - Reported Systolic And Diastolic Provider Name and Address Organization Details Last Updated DateTime 5 39843.8 1 g 24 kg/m2 185.42 cm 98.6 [degF] 67 /min 96 % 96 % 17 /min 2 127/75 mm[Hg] Boston Rivera [facility] 5 11:37:54 Date Recorded Body height Body mass index (BMI) Body weight Body temperature Heart rate Oxygen saturation Oxygen saturation in Arterial blood by Pulse oximetry Respiratory rate Pain severity - 0-10 verbal numeric rating [Score] - Reported Systolic And Diastolic Provider Name and Address Organization Details Last Updated DateTime 3 185.42 cm 23.4 kg/m2 87076.8 5 g 98.8 [degF] 78 /min 98 % 98 % 18 /min 2 118/70 mm[Hg] Janie Mccracken [facility] 3 13:24:44 Date Recorded Body height Body mass index (BMI) Body weight Respiratory rate Pain severity - 0-10 verbal numeric rating [Score] - Reported Oxygen saturation Oxygen saturation in Arterial blood by Pulse oximetry Heart rate Body temperature Systolic And Diastolic Provider Name and Address Organization Details Last Updated DateTime 5 185.42 cm 23.5 kg/m2 81198.4 4 g 17 /min 6 98 % 98 % 58 /min 98.1 [degF] 145/89 mm[Hg] Boston Rivera [facility] 5 13:10:19 Social History Question Answer Notes LastModified by Organizat ion Details LastModified Time Tobacco Smoking Status Never Smoker Lucinda anglin [place] - [facility] 03/27/2017 10:21:23 Able To Swim? Yes Information not available 03/27/2017 Do You Have An Advance Directive? Yes Information not available 03/27/2017 Do You Wear A Helmet When Biking? No Information not available 03/27/2017 Are You Blind Or Do You Have Difficulty Seeing? No Information not available 03/27/2017 What Is Your Level Of Caffeine Consumption? Heavy Information not available 07/03/2020 Are You Deaf Or Do You Have Serious Difficulty Hearing? No Information not available 03/27/2017 Which Illicit Or Recreational Drugs Have You Used? None Information not available 03/27/2017 Hard Of Hearing Or Deaf In One Or Both Ears? No Information not available 03/27/2017 Legally Blind In One Or Both Eyes? No Information no t available 03/27/2017 Live Alone Or With Others? With Others Information not available 03/27/2017 Do You Have A Medical Power Of Business Continuity Management Director? Yes Information not available 07/29/2022 What Was The Date Of Your Most Recent Tobacco Screening? 01/13/2025 [email or web address] Information not available 01/13/2025 How Many Children Do You Have? 0 Information not available 07/29/2022 What Is Your Relationship Status? Information not available 03/27/2017 Seat Belts Used Routinely Yes Information not available 03/27/2017 Are You Sexually Active? Yes Information not available 03/27/2017 Smoke Alarm In Home Yes Information not available 03/27/2017 Do You Use Sunscreen Routinely? Yes Information not available 03/27/2017 Has Tobacco Cessation Counseling Been Provided? No [email or web address] Information not available 01/13/2025 Do You Have Difficulty Walking Or Climbing Stairs? No Information not available 03/27/2017 Sex: Unknown Functional Status Question Answer Note LastModified by Organizat ion Details LastModified Time How many times per week do you consume alcohol? 5-7 times per week [email or web address] Information not available 01/13/2025 Do you use any illicit or recreational drugs? No Information not available 07/29/2022 Do you or have you ever used any other forms of tobacco or nicotine? No [email or web address] Information not available 01/13/2025 What is your level of alcohol consumption? Heavy [email or web address] Information not available 01/13/2025 Are you currently employed? No Information not available 03/27/2017 Do you have transportation difficulties? No Information not available 07/29/2022 Are you able to walk independently without assistance or assistive devices? YESWOREST Information not available 07/29/2022 Do you have difficulty doing errands alone? No Information not available 03/27/2017 Are you able to care for yourself independently? Yes Information not available 03/27/2017 What is your occupation? retired Information not available 03/27/2017 Do you have difficulty dressing, bathing, grooming, or toileting? No Information not available 03/27/2017 Mental Status Question Answer Note LastModified by Organization D etails LastModified Time Do you have difficulty concentrating, remembering or making decisions? No Information no t available 03/27/2017 Family History Relationship Description Onset Age of this Age Resolved Age Notes LastModified by Organization Details LastModified Time Father Essential hypertension [email or web address] Not available 10:20:20 Father Malignant neoplasm of colon [email or web address] Not available 2016 10:21:14 Father Myocardial infarction 78 [email or web address] Not available 03/27 10:44:18 Mother Alzheimer's disease [email or web address] Not available 2016 10:20:46 Paternal Grandfather Malignant neoplasm of colon [email or web address] Not available 2016 10:21:14 Paternal Grandmother Myocardial infarction 75 [email or web address] Not available 03/27 10:44:18 Medical History No medical history recorded. Immunizations Vaccine Type Date Status Note Provider Nam e and Address Organization Details Recorded Time COVID-19 vaccine, vector-nr, rS-Ad26, PF, 0.5 mL 1 completed Not Available [facility] 01/13/2025 12:57:04 COVID-19 vaccine, vector-nr, rS-Ad26, PF, 0.5 mL 1 completed [place], [place] - [facility] 11/07/2024 11:32:11 Influenza, split virus, quadrivalent, preservative 7 completed Not Available [facility] 04/27/2019 03:54:49 Pneumococcal conjugate PCV20, polysaccharide HZF136 conjugate, adjuvant, PF 3 completed Lucindasegun [place] null, [place] - [facility] 07/29/2022 13:33:32 Tdap 3 completed Lucinda [place] - [facility] 03/27/2017 10:18:49 SARS-COV-2 (COVID-19) vaccine, UNSPECIFIED 1 completed wyatt Miguel [place], [place] - [facility] 11/07/2024 11:32:11 Past Encounters Encounter ID Performer Location Encounter Start Date Encounter Closed Date Diagnosis/Indication Diagnosis SNOMED-CT Code Diagnosis ICD10 Code Diagnosis IMO Codes Diagnosis Note [id number] Lucia Gottlieb MD [address] [place] [address] 03/27/2017 10:12:29 03/27/2017 11:16:11 Body mass index 25-29 - overweight 558663024 Z68.25 Screening for malignant neoplasm of colon 634561026 Z12.11 Chest pain 12046545 R07. 9 Fatigue 29048172 R53.83 Screening for malignant neoplasm of prostate 786787321 Z12.5 Gastroesop hageal reflux disease without esophagitis 121021994 K21.9 Administra tion of influenza vaccine 12649711 Z23 [id number] Lucia Gottlieb MD [address] [place] [address] 07/03/2020 11:13:29 07/03/2020 12:01:25 Left iliac fossa pain 074040675 R10.32 Paresthesi a of lower extremity 911296902 R20.2 Hyperglycemia 87277813 R 73.9 Thyroid fu nction tests abnormal 130241983 R94.6 Renal angl e tenderness 757140278 R10.829 Hyperlipidemia 19148027 E78.5 Screening for malignant neoplasm of prostate 099937283 Z12.5 [id number] Lucia Gottlieb MD [place] [id number] [facility] [place] [address] 07/29/2022 10:30:33 07/29/2022 13:07:47 Prediabetes 457655886 R73.03 A1c 07/03/20 6.0% Mixed hyperlipidemia 267 202888 E78.2 Vitamin B1 2 deficiency (non anemic) 54588062 E53.8 Screening for malignant neoplasm of prostate 460678880 Z12.5 Administra tion of pneumococcal vaccine 43298651 Z23 Family his tory of cancer of colon 586033090 Z80.0 father and paternal GF Vitamin D deficiency 347 24419 E55.9 Adult heal th examination 937779879 Z00.00 Depression screening 171 870636 Z13.89 Examinatio n of blood pressure 812524363 Z01.30 Diet education 94960425 Z71.3 Counseling 554226828 Z71 .82 Exercise counseling . Patient encouraged to exercise 30 minutes 5 days a week. At [facility] ed risk for falls 640511885 Z91.81 STEADI FAST screening score of __5___. Advance care planning 71 6607475 Z71.89 he has a living will Finding of body mass index 313412890 Z68.23 Unintentio nal weight loss 230041788 R63.4 Increased frequency of urination 514761342 R35.0 Inguinal hernia 79565943 0 K40.90 bilateral Hepatitis C screening 41 5109738 Z11.59 Neglect of dental care 334858553 R46.89 Gastroesop hageal reflux disease without esophagitis 170062131 K21.9 will restart omeprazole 20 mg qd. will see back in a month Carotid bruit 436044352 R09.89 [id number] Lucia Gottlieb MD [address] [place] [address] 08/30/2022 09:40:04 08/30/2022 10:36:03 Prediabetes 763347150 R73.03 A1c 07/29/22 6.1%. he has appt with application developer in Nov Mixed hyperlipidemia 267 559362 E78.2 not too bad on labs July,. diet control Inguinal hernia 38536264 0 K40.[address] Hughes and will do surgery later Neglect of dental care 253239438 R46.89 referred to dentist 07/29/22 Gastroesop hageal reflux disease without esophagitis 282208322 K21.9 restarted omeprazole 20 mg qd. and he is taking it prn and it helps Carotid bruit 800537840 R09.89 US ordered 07/29/22 Iron defic iency anemia 74196266 D50.9 seeing GI - no cause found on scopes. will refer to Heme [id number] Becky Phelan APRN [address] [place] [address] 11/18/2022 13:14:29 11/18/2022 13:37:46 Body mass index 20-24 - normal 827080369 Z68.23 Tinnitus 32115800 H93.13 Dizziness 302878148 R42 Bilateral earache 845209 003 H92.03 [id number] Lucia Gottlieb MD [address] [place] [address] 06/29/2023 11:17:53 06/29/2023 12:23:48 Herpes zoster 9599711 B02.9 advised that it is officially too late to tx, but will try it anyway he will call or RTC if the rash and/or the pain doesn't resolve in 2-4 weeks Iron defic iency anemia 61825871 D50.9 has seen Heme and GI - no cause found on egd and csp. Heme wanted to do capsule study, CT abd/pelvis and check a haptoglobi n level. Fatigue 71025199 R53.83 Prediabetes 534575210 R7 3.03 A1c 07/29/22 6.1%. he had appt with application developer - didn't keep appt Reactive d epression (situational) 74022706 F32.A he is scared about what is going on with his health. advised him we will start working on that today. be sure to f/u as planned [id number] Lucia Gottlieb MD [address] [place] [address] 07/31/2023 10:17:22 07/31/2023 11:34:47 Prediabetes 568634081 R73.03 A1c 06/29/23 6.3%. he had appt with application developer - didn't keep appt Reactive d epression (situational) 83951124 F32.A he is scared about what is going on with his health. advised him we will start working on that today. be sure to f/u as planned Iron deficiency 05354293 E61.1 on labs 06/29/23 he was not anemic, but his ferritin was low. prescribed qd FeSO4 has seen Heme and GI - no cause found on egd and csp. Heme wanted to do capsule study, CT abd/pelvis he will get back in with Heme MARTINA History of adenomatous polyp of colon 395556916 Z86.010 csp 08/17/22 Screening for malignant neoplasm of prostate 112235414 Z12.5 Fatigue 48657859 R53.83 Adult heal th examination 314461365 Z00.00 Depression screening 171 923529 Z13.31 A depression screening was completed via a standardiz ed screening tool. 5 minutes were spent discussing depression screening results and risk factors. Examinatio n of blood pressure 721874150 Z01.30 Diet education 38053031 Z71.3 Counseling 087669509 Z71 .82 Exercise counseling . Patient encouraged to exercise 30 minutes 5 days a week. At [facility] ed risk for falls 390677800 Z91.81 STEADI FAST screening score of __10___. Advance care planning 71 8444558 Z71.89 he has a living will Finding of body mass index 376335597 Z68.24 Weakness o f bilateral lower limb 2924178800 36928 M62.81 Paresthesi a of lower extremity 210419941 R20.2 [id number] Brittni Lu DO [facility] [address] [place] [address] 11/07/2024 11:26:32 11/07/2024 11:56:38 Iron deficiency anemia 02551285 D50.9 Patient reports fatigue; previous labs show low ferritin, low iron, low % saturation and elevated TIBC and RDW with normal hemoglobin , MCV and RBC consistent with normocytic normochrom ic anemia. Will recheck CBC, iron studies, folate, B12, ferritin, reticulocy te count and MMA. Patient may benefit from B12 injections if B12 levels are low. Patient may also benefit from repeat endoscopy/ colonoscop y to evaluate for bleeding, given his positive family history of multiple family members with CRC. However he did have a colonoscop y in 2022 which he reports as having had maybe 1 polyp. May also consider peripheral blood smear to evaluate for intravascu lar and extravascu lar causes of hemolysis. [id number] Karla [place] MD [facility] [address] [place] [address] 01/13/2025 12:56:08 01/13/2025 13:40:58 Fatigue 61855081 R53.82 [id number] Patient has fatigue, likely secondary to long COVID syndrome versus normocytic normochrom ic anemia. Iron studies, CBC, B12, B9, reticulocy te count, and MMA more consistent with normocytic normochrom ic anemia. Patient advised to continue monitoring his symptoms at home. Normocytic normochromic anemia 70783245 D64.9 [id number] Patient will be referred to hematology and GI for further evaluation and recommenda tions as well as possible additional testing Mononeuropathy 724041928 G58.9 [id number] Patient has pain along the left lower ribs likely secondary to cutaneous nerve entrapment or injury. Will refer the pain management for possible nerve block. Health Concerns Section Related Observation LastModified by Organization Detai ls LastModified Time None Recorded Concern Status LastModified by Organization Details LastModified Time None Recorded Advance Directives Directive Y: Payers Insurance Date Sequence Insurance Name Policy Number Policy Cedillo Covered Member ID Cedillo Member ID Guarantor Name 11/07/2024 2 [place] [id number] Nuvia Barnhart [id number] Nuvia Barnhart 03/27/2017 1 *SELF PAY* Kimo Barnhart 11/07/2024 2 [place] Nuvia Barnhart [id number] Nuvia Barnhart 01/13/2025 [employer] [place] [facility] (MEDICARE) Nuvia Barnhart [id number] Nuvia Barnhart 01/13/2025 1 [employer] [place] (MEDICARE REPLACEMENT/AD VANTAGE - PPO) Nuvia Barnhart [id number] Nuvia Barnhart 01/13/2025 [employer] (MEDICARE REPLACEMENT/AD VANTAGE - PPO) Nuvia Barnhart [id number] Nuvia Barnhart 11/07/2024 1 [employer] - [employer]IC[place] (PPO) Nuvia Barnhart [id number] Nuvia Barnhart 11/07/2024 1 [place]MEDICARE RE[place]ACEMENT HMO) [id number] Nuvia Barnhart [id number] Nuvia Barnhart Notes Date Note Type Note Provider Name and Address Organization Details Recorded Time 11/18/2022 text/html ROS as noted in the HPI Nuvia presents today with complaints of bilateral ear pain, drainage, ringing and muffled hearing for the last 3-4 weeks.His bilateral ear pain is intermittent, describes as a ache. Some times with the ear pain he will get a mild headache.Ringing in his ears is constant. This worsens when the room he is in is quiet.Feels like he has drainage that is draining down from his ears.Muffled hearing is constant as well.He has tried heating pad and shaking my head, with no relief with this.He voices that he does get dizzy as well, this occurs more when he goes from sitting to standing. He admits to not drinking many fluids throughout the day. Becky Phelan APRN [address], [place], [address], [facility] - [facility] 11/18/2022 13:38:27 06/29/2023 text/html he has had a rash under his L arm for 3-4 days. spreading to chest painful. taking ASA with a little help he has had mouth rawness and extreme fatigue. he was anemic when he had these symptoms in the past he had been taking Fe qd. increased to 2 qd about 1-2 weeks ago. takes a MV he has seen GI and Hem[facility] for this . [facility]. was supposed to have more of a w/u but never went back. having pain in LUQ for 5-6 yrs Lucia Gottlieb MD [address], [place], [address], [facility] - [facility] 06/29/2023 13:08:36 07/31/2023 text/html Medicare Annual Wellness VisitReported by PatientSocial/Behavior al HistoryFor diet and nutrition, patient reportsdiet is high in saltandhigh caloric intakebut reportshealthy diet,discussed vitamin and supplement use,discussed portion control,discussed maintaining calcium balance, anddiscussed diet improvement. For fracture risk, patient reportsno history of fractures,no recent explained fracture,no sudden unexplained fractures, andno previous musculoskeletal injuries. For physical activity, patient reportsexercises on a regular basis,recent increase in physical activity,good physical condition,discussed weightbearing activities, anddiscussed exercise habits.Mental Status:For depression risk, patient reportsfeels sad, empty, or tearful,loss of interest in activities,agitated,lo ss of energy, andhistory of depressionbut reportsno significant changes in weight,no sleep disturbances or insomnia,no thoughts of suicide, andno history of mood disorders. For concentration and memory, patient reportsmemory lapses or lossbut reportsno decreased concentrating abilityanddoes not forget words. For orientation, patient reportsno disorientation to time,no disorientation to date, andno disorientation to place. For speech/motor difficulties, patient reportsno speech difficulties,no difficulty expressing formulated concepts,no difficulty with fine manipulative tasks,no difficulty writing/copying,no slowed reaction time, anddoes not knock things over when trying to pick them up.Functional AbilityFor vision, patient reportsworse near. For falls risk assessment, patient reportsdizziness/verti goandfear of fallingbut reportsno frequent falls while walking,fall(s) in the past year 1, andfall(s) since last visit1. For hearing, patient reportsno loss of hearing. For activities of daily living, patient reportsable to bathe with limited or no assistance,able to contol urination and bowels,able to dress with limited or no assistance,able to feed self with limited or no assistance,able to get out of chair or bed with limited or no assistance,able to groom with limited or no assistance, andable to toilet with limited or no assistance. For instrumental activities of daily living, patient reportsable to do house work with limited or no assistance,able to grocery shop with limited or no assistance,able to manage medications with limited or no assistance,able to manage money with limited or no assistance,able to prepare meals with limited or no assistance, andable to use the phone with limited or no assistance. For home safety, patient reportsno unsafe tay hazzards,no unsafe stairs,no unsafe gas appliances,working smoke/co detectors,wears protective head gear for biking/high velocity,use of seatbelts,no vision or hearing loss while driving,no fire arms,has hand bars in the bathroom/shower,good lighting in the home, andnumber of motor vehicle accidents 0. For current level of pain, patient reportspain present.L side pain he is here for AWE labs 06/29/23 - he was not anemic and his iron levels were ok, but his iron stores were down. he was still prediabetic. prescribed FeSO4 325mg qd he still has extreme fatigue. he was anemic he has had at least 2 iron infusions in the past. was supposed to have more of a w/u but never went back. at that visit he had shingles - it has resolved he saw ENT 07/13/23 for tinnitus and hearing loss. tinnitus has improved a little worsening neuropathy pain in BLE and has ED. has had for yrs. never has had a work up. numb from low abd down to toes. he has fallen d/t weakness in BLE, worse on L Lucia Gottlieb MD [facility] [address], [place], [address], [place] - [facility] 08/01/2023 08:41:47 11/07/2024 text/html ROS as noted in the HPI Patient is presenting for evaluation of fatigue. Patient states that since he had COVID-19 in 2021, he has been experiencing issues with fatigue which were not a problem prior to having COVID. Patient was diagnosed with anemia based on laboratory studies and received iron infusions at [facility] with some improvement in symptoms. Patient has had EGD and colonoscopy in 2022 which were negative for bleeding, per patient, but did show a small polyp which was removed; he states that his father, aunts, and grandparents have all from CRC. Patient reports that his periods of fatigue are waxing and waning; he states that prior to his fatigue, he experiences a rash on the posterior aspect of his neck. Patient states that the fatigue is debilitating, requiring him to lay in bed for hours and hours as he feels too tired to do much. Patient states that his stool is black, which he thinks is because of the iron supplements he has been taking. Patient denies recent changes to what he eats or drinks, but states that he does not consume a lot of meat as it is usually the first thing he doesn't want to eat when his fatigue spells strike. Patient states that he doesn't eat a lot of junk food and tries to consume a lot of green leafy vegetables. Patient states that the last time he had iron studies done, his ferritin was 11 and his B12 was also low. Patient states that he has not been treated with B12 injections in the past. Brittni Lu, DO [address], [place], [address], [facility] - [facility] 11/07/2024 12:52:45 01/13/2025 text/html ROS as noted in the HPI Patient is presenting for evaluation of fatigue and nausea. Patient states that he has been battling more fatigue than normal for the past week in addition to stomach issues. Patient was previously treated at [facility] with IV iron infusions and had bloodwork in October 2024 which is more consistent with normocytic, normochromic anemia with normal B12, folate and MMA. Patient reports that he has been have nausea, decreased oral intake, diarrhea several days ago which has since improved. Patient states that he has not been drinking a lot of water either. Patient reports that he was taking the iron supplement up until this week at which point his fatigue began to worsen. Patient reports that his taste sensation has decreased and his tongue is swollen and raw - he states that this is worsened lately but has been ongoing since -. Patient also reports some discomfort and pain along his left lower ribs, which he has had previously evaluated by a neurologist. He was told this pain may be secondary to peripheral cutaneous nerve entrapment or damage. Patient states that he was not told to follow up with a nut cracker and has not seen one. Tessa Severino, DO [address], [place], [address], [facility] - [facility] 01/13/2025 14:01:25
--- OUTSIDE RECORDS SUMMARY | 2025-01-29 14:28 | XMS_ITS | Continuity of Care Document ---
Author Organization [facility] Residency Address [address] [place] [address] Assessment No assessment recorded. Plan of Treatment Reminders Order Date Submit Date Provider Last Modified By Organization Details Last Modified Time Details Appointments None recorded. Lab None recorded. Referral gastroente rologist referral 2024 025 BONNIE Centeno MD, [address] [place] [address], [address], [place], [address], 13:59:[address] referral 2024 025 BONNIE Rincon MD, [address], [place], [address], 14:20:40 Procedures None recorded. Surgeries None recorded. Imaging None recorded. Medication Orders None recorded. Patient TargetsNo targets recorded. Patient Instructions Encounter Date Encounter Id Patient Instructions Last Modified By Organization Details Last Modified Time 01/13/2025 [id number] The patient was seen and evaluated with the resident as documented above. The case and presentation were discussed. I agree with the plan and treatment recommendations as outlined above. [email or web address] Not available 01/13/2025 13:08:22 Reason for Referral Packaging Sales Referral for Normocytic normochromic anemia Referring Physician: Tessa Severino, Family Medicine, Encounter Date: 01/13/2025 Spanish Interpreter/Translator Referral for No rmocytic normochromic anemia Referring Physician: Tessa Severino Family Medicine, Encounter Date: 01/13/2025 Problems Name Problem SNOMED Code Status Onset Date Resolution Date Notes Provider Name and Address Organization Details Recorded Time Knee pain Completed 200707/04/2020 Lucia Gottlieb MD [address], [place], [address], [place] [facility] 08:37:42 Depressive disorder 46359949 Active 2016 Lucinda Wagner null, [place] - [facility] 10:19:02 Vitamin B12 deficiency (non anemic) 21137320 Active 2020 Lucia Gottlieb MD [address], [place], [address], [place] [facility] 08:37:33 Mixed hyperlipide eduarda 426663106 Active 2020 Lucia Gottlieb MD [address], [place], [address], [place] [facility] 08:37:35 Prediabetes 405407240 Active 2020 Lucia Gottlieb MD [address], [place], [address], [place] [facility] 08:37:36 SARS-CoV-2 Completed 202207/29/2022 Lucinda Wagner null, [place] - [facility] 10:44:25 Iron deficiency anemia 02591298 Active 2022 Lucia Gottlieb MD [address], [place], [address], [place] [facility] 19:42:31 History of adenomatous polyp of colon 508573211 Active 2023 Lucia Gottlieb MD [address], [place], [address], [place] [facility] 11:41:52 Fatigue 30675165 Active 2024 Tessa Severino DO [address], [place], [address], [place] [facility] 5 13:59:03 Normocytic normochromi c anemia 45187024 Active 2024 Tessa Severino DO [address], [place], [address], [place] [facility] 13:56:32 Mononeuropa thy 592018361 Active 2024 Tessa Severino DO [address], [place], [address], [place] [facility] 5 13:59:38 Problem Notes None recorded. Procedures Surgical History Date Name Laterality Status Provider Name and Address Organization Details Recorded Time 2023 Advance Care Planning completed Lucinda Mcminn [place] [facility] 10:40:02 2023 Functional Status Assessed completed Regin a Mcminn [place] - [facility] 10:40:02 2022 esophagogastroduodenoscopy completed Lucia Gottlieb MD [address], [place], [address], [place] [facility] 11:33:06 2022 Colonoscopy completed Lucia Gottlieb MD [address], [place], [address], [place] [facility] 12:04:18 2022 Advance Care Planning completed Lucindasegun [place] [facility] 10:40:42 2022 Functional Status Assessed completed Regin robert [place] [facility] 10:40:42 2017 Cardiac Cath completed Lucia Gottlieb MD [address], [place], [address], [place] [facility] 12:42:38 Appendectomy completed Lucindasegun [place] [facility] 7 10:22:29 Knee Surgery completed Lucinda Mcminn [place] [facility] 10:22:38 Imaging Results None recorded. Procedure Notes None recorded. Medical Equipment None Reported. Allergies Allergen ID Allergen Name Allergen Category Reaction Reaction Severity Criticality Documentation Date Start Date Code Code System Note Provider Name and Address Organization Details Recorded Time 899264 shrimp allergeni c extract food vomiting severe Not available 11/07/2024 17456 2 RxNorm Air[place] Miguel anglin [place] - [facility] 11:33:09 No known drug [...] Updated DateTime 5 185.42 cm 23.5 kg/m2 90878.4 4 g 17 /min 6 98 % 98 % 58 /min 98.1 [degF] 145/89 mm[Hg] [place] Rivera [place] - [facility] 13:10:19 Social History Question Answer Notes LastModified by Organizat ion Details LastModified Time Tobacco Smoking Status Never Smoker Lucinda Wagner [place], [place] - [facility] 03/27/2017 10:21:23 Able To [...] 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 01/13/2025 [email or web address] Information not available 01/13/2025 How Many Children [...] Has Tobacco Cessation Counseling Been Provided? No [email or web address] Information not available 01/13/2025 Do You Have Difficulty Walking Or Climbing Stairs? No Information not available 03/27/2017 Sex: Unknown Functional Status Question Answer Note LastModified by Organizat ion Details LastModified Time How many times per week do you consume alcohol? 5-7 times per week [email or web address] Information not available 01/13/2025 Do you use any illicit or recreational drugs? No Information not available 07/29/2022 Do you or have you ever used any other forms of tobacco or nicotine? No [email or web address] Information not available 01/13/2025 What is your level of alcohol consumption? Heavy [email or web address] Information not available 01/13/2025 Are you currently [...] PF, 0.5 mL 1 completed Not Available [facility] 01/13/2025 12:57:04 COVID-19 vaccine, vector-nr, rS-Ad26, PF, 0.5 mL 1 completed [place] Rivera null, [place] [facility] 11/07/2024 11:32:11 Influenza, split virus, quadrivalent, preservative 7 completed Not Available [facility] 04/27/2019 03:54:49 Pneumococcal conjugate PCV20, polysaccharide PXF098 conjugate, adjuvant, PF 3 completed Lucinda Wagner null[place] [facility] 07/29/2022 13:33:32 Tdap 3 completed Lucinda Wagner [place] [facility] 03/27/2017 10:18:49 SARS-COV-2 (COVID-19) vaccine, UNSPECIFIED 1 completed [place] Rivera null, [place] [facility] 11/07/2024 11:32:11 Past Encounters Encounter ID Performer Location Encounter Start Date Encounter Closed Date Diagnosis/Indication Diagnosis SNOMED-CT Code Diagnosis ICD10 Code Diagnosis IMO Codes Diagnosis Note [id number] Karla Eden MD [facility] Residency [address] [place] [address] 01/13/2025 12:56:08 01/13/2025 13:40:58 Fatigue 87922277 R53.82 [id number] Patient has fatigue, likely secondary to long COVID syndrome versus normocytic normochrom ic anemia. Iron studies, CBC, B12, B9, reticulocy te count, and MMA more consistent with normocytic normochrom ic anemia. Patient advised to continue monitoring his symptoms at home. Normocytic normochromic anemia 22920951 D64.9 20112 Patient will be referred to hematology and GI for further evaluation and recommenda tions as well as possible additional testing Mononeuropathy 187958983 G58.9 [id number] Patient has pain along the left lower ribs likely secondary to cutaneous nerve entrapment or injury. Will refer the pain management for possible nerve block. Health Concerns Section Related Observation LastModified by Organization Detai ls LastModified Time None Recorded Concern Status LastModified by Organization Details LastModified Time None Recorded Payers Encounter Date Sequence Insurance Name Policy Number Policy Cedillo Covered Member ID Cedillo Member ID Guarantor Name 01/13/2025 1 [employer] (MEDICARE REPLACEMENT/A DVANTAGE - PPO) Rg Barnhart [id number] Rg Barnhart Notes Date Note Type Note Provider Name and Address Organization Details Recorded Time 01/13/2025 text/html ROS as noted in the HPI Patient is presenting for evaluation of fatigue and nausea. Patient states that he has been battling more fatigue than normal for the past week in addition to stomach issues. Patient was previously treated at [facility] with IV iron infusions and had bloodwork [...] worsened lately but has been ongoing since COV-19. Patient also reports some discomfort and pain along his left lower ribs, which he has had previously evaluated by a neurologist. He was told this pain may be secondary to peripheral cutaneous nerve entrapment or damage. Patient states that he was not told to follow up with a parer and has not seen one. Tessa Severino, DO [address], [place], [address], [place] [facility] 01/13/2025 14:01:25
[2025-01-29 15:58] LABS: Iron 85 ug/dL (49-181)
[2025-01-29 16:07] LABS: Total Iron Binding Capacity 382 ug/dL (261-462)
[2025-01-29 16:35] LABS: Ferritin 6.32 ng/ml (17.9-464)
== END 2025-01-29 23:59 | disposition home or self-care (01) ==
LOC: LAB 13:43
PROVIDERS: PCP Family Medicine; Visit Provider Internal Medicine Medical Oncology
DX: D64.9 Anemia, unspecified (principal)
CPT/HCPCS: 36415; 82728; 83540; 83550; 85025